=== PATIENT | female | born 1940 | race Two or more races ===

== ENCOUNTER 2025-05-22 09:39 | Emergency (ER) | payer OTHER ==
[~2025-05-22] VITALS: Ht 162.6 cm; Wt 54.9 kg
[2025-05-22 11:02] LABS: PLATELET COUNT (AUTO) 232 K/uL (150-450); RED BLOOD CELL COUNT(AUTO) 4.08 MIL/uL (4.0-5.2); RED CELL DISTRIBUTION WIDTH 13.9 % (11.5-15.0); WHITE BLOOD COUNT (AUTO) 6.4 K/uL (4.3-11.0)
[2025-05-22 11:05] LABS: APPEARANCE,URINE CLEAR (CLEAR); BLOOD, URINE TRACE-INTA Ery/uL (NEGATIVE); LEUKOCYTE ESTERASE ,URINE NEGATIVE (NEGATIVE); NITRITE, URINE NEGATIVE (NEGATIVE); UGLUCOSE NEGATIVE (NEGATIVE)
[2025-05-22 11:13] LABS: ADD URINE CULTURE NO; SQUAMOUS EPITHELIAL CELL,UR 0-2 /HPF (None Seen)
[2025-05-22 11:24] LABS: CALCIUM, SERUM 8.9 mg/dL (8.5-10.1); CREATININE 1.0 mg/dL (0.6-1.3); NT-PRO BNP 156 pg/mL (0-125); SODIUM SERUM 138 mmol/L (136-145); UREA NITROGEN, BLOOD 29 mg/dL (7-18)
[2025-05-22 12:38] VITALS: BP 159/77; TEMP 98.2; O2SAT 99
== END 2025-05-22 12:38 | disposition home or self-care (01) ==
LOC: ER 10:31
DX: I11.9 Hypertensive heart disease without heart failure (principal); G31.9 Degenerative disease of nervous system, unspecified; R06.02 Shortness of breath
CPT/HCPCS: 36415; 70450-TC; 71045-TC; 80048-TC; 81001; 83880; 84484-TC; 85025-TC